=== PATIENT | female | born 1970 | race Caucasian/White ===

== ENCOUNTER 2019-08-30 14:54 | Inpatient (IN) | payer MEDICARE ==
[2019-08-30] MEDS ORDERED: Ipratropium Bromide 2.5 ml Neb NEB PRN (16:32)
[2019-08-30] MEDS ORDERED: traMADol HCl 50 MG TAB PO PRN ×2 (18:11)
[2019-08-30] MEDS: Lactated Ringer's 1,000 ML IV SCH (18:19)
[2019-08-30] MEDS: methylPREDNISolone Sod Succ 40 MG VIAL IVP SCH (18:19)
[2019-08-30] MEDS: Azithromycin 500 MG in Sodium Chloride 0.9% 250 ML 250 ML IVPB SCH (18:19)
--- NOTE | 2019-08-30 18:27 | PDOC.EVN ---
Event Note - Event Note Event Note: [id number] HP
[2019-08-30] MEDS ORDERED: Ipratropium Bromide 2.5 ml Neb NEB SCH (18:30)
[2019-08-30] MEDS ORDERED: HYDROcodone/Acetaminophen 10/325 mg Tablet PO PRN (18:41)
[2019-08-30] MEDS ORDERED: Morphine 2 MG/ML SYRINGE SLOW IVP SCH (18:45)
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
[2019-08-30] MEDS: Famotidine 20 MG TAB PO SCH (21:56)
[2019-08-30] MEDS: Montelukast Sodium 10 mg Tablet PO SCH (21:57)
[2019-08-30] MEDS ORDERED: Morphine 4 MG/ML VIAL SLOW IVP SCH (22:00)
[2019-08-30] MEDS: HYDROcodone/Acetaminophen 10/325 mg Tablet PO PRN (22:05)
--- NOTE | 2019-08-30 22:22 | HP ---
CHIEF COMPLAINT: Shortness of breath. HISTORY OF PRESENT ILLNESS: Ms. Nathan is a 49-year-old female with past medical history of asthma, MRSA sepsis/bacteremia, intubation, traumatic brain injury, presented to the emergency room with shortness of breath, cough, wheezing for the last few days. Symptoms got worse the last 24 hours. The patient initially was in severe respiratory distress, placed on BiPAP and was given IV Solu-Medrol, bronchodilators, and continued to be symptomatic. The patient is being admitted to the [facility] for close monitoring and further management. Pulmonary is being consulted. The patient denies fevers, chills, nausea, vomiting, abdominal pain. PAST MEDICAL HISTORY: 1. MRSA sepsis. 2. Bronchial asthma. 3. Traumatic brain injury. PAST SURGICAL HISTORY: The patient recently had an orthopedic surgery, left knee. SOCIAL HISTORY: Denies smoking, alcohol drinking, or drug abuse. FAMILY HISTORY: Reviewed and noncontributory. HOME MEDICATIONS: Please see home medication reconciliation form for updated medications. ALLERGIES: ALLERGIC TO LORAZEPAM AND MIDAZOLAM. REVIEW OF SYSTEMS: Review of 14 systems negative except what is mentioned in history of present illness. PHYSICAL EXAMINATION: GENERAL: The patient is awake, alert, in moderate respiratory distress. VITAL SIGNS: Blood pressure 147/84, pulse is 79, respiratory rate is 20, oxygen saturation 94% on room air. HEAD AND NECK: Normocephalic, atraumatic. NECK: Supple. CHEST: Diffuse bilateral expiratory wheeze. HEART: S1, S2. Regular. ABDOMEN: Soft, nontender. Bowel sounds present. NEUROLOGIC: Patient is awake, alert, and oriented x3. PSYCHIATRIC: Normal mood. EXTREMITIES: No clubbing, no cyanosis. LABORATORY DATA: WBC is 8.0, hemoglobin 12.1, platelets 257. Chest x-ray, no acute finding. ASSESSMENT AND PLAN: 1. Acute exacerbation of asthma, severe with status asthmaticus. 2. History of traumatic brain injury. 3. History of recent orthopedic surgery/knee surgery. 4. History of methicillin-resistant Staphylococcus aureus sepsis. PLAN: 1. Admit to [facility]. 2. Continue with oxygen to keep saturation more than 92%, BiPAP as needed. 3. IV Solu-Medrol. 4. Bronchodilators scheduled as needed. 5. Pulmonology is consulted for evaluation and further management. 6. Reconcile home medications. 7. DVT prophylaxis as appropriate. 8. Expected length of stay, 2 midnights or more. Job ID: [id number]
[2019-08-31] MEDS: methylPREDNISolone Sod Succ 40 MG VIAL IVP SCH ×5 (00:42→23:51)
[2019-08-31] MEDS ORDERED: Morphine 2 MG/ML SYRINGE SLOW IVP SCH (04:00)
[2019-08-31] MEDS: Lactated Ringer's 1,000 ML IV SCH ×3 (04:04→18:30)
[2019-08-31] MEDS: Famotidine 20 MG TAB PO SCH ×3 (07:55→20:24)
[2019-08-31] MEDS: HYDROcodone/Acetaminophen 10/325 mg Tablet PO PRN ×2 (08:13→14:20)
--- NOTE | 2019-08-31 13:50 | PDOC.EVN ---
Event Note - Event Note Event Note: [id number] Progress
--- NOTE | 2019-08-31 14:06 | PRG ---
DATE OF SERVICE: 08/31/2019 CHIEF COMPLAINT: The patient continues to be short of breath, requiring BiPAP. The patient also has been asking for pain medications consistently. Respiratory syncytial virus A was dissected. PHYSICAL EXAMINATION: GENERAL: The patient is awake, alert, in moderate respiratory distress, on BiPAP. VITAL SIGNS: Blood pressure 158/90, pulse is 116, and respiratory rate is 22, and pulse oximetry 98%. HEAD AND NECK: Normocephalic, atraumatic. NECK: Supple. CHEST: Bilateral expiratory wheeze. HEART: S1 and S2, regular. ABDOMEN: Soft, nontender. Bowel sounds present. NEUROLOGIC: Awake, alert, and oriented. PSYCHIATRIC: Anxious. EXTREMITIES: No clubbing. No cyanosis. Dressing over left knee. GENITOURINARY: No suprapubic tenderness. No flank tenderness. LABORATORY DATA: Nasopharyngeal swab positive for RSV. ASSESSMENT: 1. Acute asthma exacerbation with status asthmaticus. 2. RSV positive. 3. Recent knee surgery. 4. History of methicillin-resistant Staphylococcus aureus sepsis. 5. History of traumatic brain injury. PLAN: 1. Continue with bronchodilator scheduled as needed. 2. IV steroids. 3. IV antibiotics. 4. BiPAP as needed. 5. Pulmonary is following. 6. DVT prophylaxis as appropriate. 7. Continue with close monitoring, IMCU setting. Job ID: [id number]
[2019-08-31 15:38] LABS: CO2 Tension 34.5 mmHg (35.0-45.0); O2 Tension (PaO2) 83.7 mmHg (80.0-100.0); pH, Arterial 7.34 (7.35-7.45)
[2019-08-31 15:39] LABS: Base Excess (BEa) -1.8 mEq/L (-2.0 to +3.0); Calcium, Ionized 1.21 mmol/L (1.12-1.30); Carboxyhemoglobin (COHb) 0.6 gm% (0.0-3.0); Hemoglobin (Hb) 12.6 g/dL (12.0-16.0); Potassium - ABG Lab 4.18 mmol/L (3.70-5.30); Puncture Site LRA
[2019-08-31 15:40] LABS: ALV-art Gradient 72.815 (0-20)
[2019-08-31] MEDS ORDERED: Propofol 1,000 MG/100 ML VIAL IV ONE (16:42)
[2019-08-31] MEDS ORDERED: Midazolam HCl 2 mg/2 ml Vial ONE (16:44)
[2019-08-31] MEDS ORDERED: Ventilator Sedation Protocol 1 EACH FS SCH (16:45)
[2019-08-31] MEDS ORDERED: Propofol BOLUS 1,000 MG/100 ML VIAL IV PRN (16:52)
[2019-08-31] MEDS ORDERED: DISCONTINUE PREVIOUS NARCOTIC PAIN MEDICATIONS AND BENZODIAZEPINES FS SCH (16:52)
[2019-08-31] MEDS ORDERED: Fentanyl BOLUS 250 ML IVPB PRN (16:52)
--- NOTE | 2019-08-31 16:52 | PRG ---
DATE OF SERVICE: 08/31/2019 INTERVAL HISTORY: The patient is doing poorly since she has been in the hospital. She indicates that her breathing function has deteriorated. This morning, she was hoping that she could be intubated. We watched her through the course of the day, she could not tolerate any BiPAP breaks. She continues to be tachypneic. She indicates that her breathing is much more comfortable. All vital signs and laboratories are otherwise fairly unremarkable however. PHYSICAL EXAMINATION: VITAL SIGNS: Afebrile, pulse 68, blood pressure 144/87, respirations 24, saturation 94%, currently on 27% FiO2 delivered via BiPAP. GENERAL: The patient is awake and alert. She is in moderate respiratory distress. HEENT: Normocephalic and atraumatic. Sclerae white. Conjunctivae pink. Oral mucosa is moist without lesions. LUNGS: There is decreased air entry. There is a prolonged expiratory phase and I heard some wheezing. HEART: Normal rate and regular. ABDOMEN: Soft, nontender, nondistended. Bowel sounds are positive. MUSCULOSKELETAL: No cyanosis or clubbing. There is no pitting in the bilateral lower extremities. NEUROLOGIC: Grossly nonfocal. LABORATORY DATA: PH 7.34, pCO2 of 34, PO2 of 83. Respiratory virus panel is positive for respiratory syncytial virus A. ASSESSMENT: 1. Acute hypoxic respiratory failure. 2. Asthma exacerbation secondary to respiratory syncytial virus. DISCUSSION AND PLAN: I sense that the patient is embellishing some of her respiratory symptoms. That being said, she tells me that she is feeling worse and not better and is requesting to be intubated. As such, we will move forward with this procedure to prevent her from having a sudden respiratory event in the middle of the night when no resources are here. Dr. Matos will assume care in the morning. I will be particularly interested in seeing what her ventilator waveform looks like immediately post intubation. Critical care time: 30 minutes, unbundled from procedure. Job ID: [id number] MTDD
--- NOTE | 2019-08-31 17:29 | RAD ---
EXAM: Portable chest PROVIDED CLINICAL HISTORY: Intubation, respiratory insufficiency COMPARISON: None FINDINGS: Cardiac and mediastinal silhouette is within normal limits. No focal consolidation, pleural fluid or pneumothorax evident. Endotracheal tube is noted, the tip of which projects in the region of the thoracic inlet. IMPRESSION: No evidence for an acute cardiopulmonary process.
[2019-08-31] MEDS: Azithromycin 500 MG in Sodium Chloride 0.9% 250 ML 250 ML IVPB SCH (17:31)
[2019-08-31 17:45] LABS: Actual Bicarbonate (HCO3a) 22.6 mEq/L (22-28); Base Excess (BEa) -1.8 mEq/L (-2.0 to +3.0); CO2 Tension 36.9 mmHg (35.0-45.0); Calcium, Ionized 1.16 mmol/L (1.12-1.30); Carboxyhemoglobin (COHb) 0.7 gm% (0.0-3.0); Hemoglobin (Hb) 12.7 g/dL (12.0-16.0); O2 Tension (PaO2) 64.2 mmHg (80.0-100.0); Potassium - ABG Lab 4.28 mmol/L (3.70-5.30)
[2019-08-31 17:46] LABS: ALV-art Gradient 110.705 (0-20); Puncture Site LRA
[2019-08-31] MEDS: Propofol 1,000 MG/100 ML VIAL IV PRN ×2 (17:48→22:08)
[2019-08-31] MEDS: Morphine 2 MG/ML SYRINGE SLOW IVP PRN (19:26)
[2019-08-31] MEDS: Montelukast Sodium 10 mg Tablet PO SCH (20:24)
[2019-09-01] MEDS: Morphine 2 MG/ML SYRINGE SLOW IVP PRN (00:29)
[2019-09-01] MEDS: fentaNYL Citrate/PF 2,000 MCG in Sodium Chloride 0.9% 60 ML IV SCH ×3 (00:53→23:05)
[2019-09-01] MEDS: Propofol 1,000 MG/100 ML VIAL IV PRN ×8 (00:59→23:37)
--- NOTE | 2019-09-01 02:14 | OP ---
DATE OF PROCEDURE: 08/31/2019 PROCEDURE PERFORMED: Emergent endotracheal intubation. CONSENT: Consent was implied secondary to clinical deterioration and respiratory failure. MEDICATIONS USED: 1. Etomidate 40 mg IV push. 2. Versed 2 mg IV push. 3. Propofol 50 mg IV push. PREPROCEDURE DIAGNOSES: 1. Acute hypoxic respiratory failure. 2. Status asthmaticus. POSTPROCEDURE DIAGNOSES: 1. Acute hypoxic respiratory failure. 2. Acute asthma exacerbation. DESCRIPTION OF PROCEDURE: Vital sign monitoring was accomplished by noninvasive hemodynamic monitoring, pulse oximetry, and telemetry. With the patient in supine position, she was preoxygenated with BiPAP and maintained with saturations of 100%. Following induction of anesthesia, a GlideScope was inserted through the mouth offering clear identification of the posterior oropharynx and laryngeal structures with a grade 1 view. A 7.5-Lao endotracheal tube was visualized passing through the vocal cords. Placement was confirmed by condensation in the endotracheal tube and bi-axillary chest auscultation. The endotracheal tube was secured at 24 cm, measured at the lips. The patient was placed on mechanical ventilation with good return of volumes. Postprocedure x-ray demonstrated good location for the endotracheal tube within the trachea. ESTIMATED BLOOD LOSS: None. COMPLICATIONS: None. FINDINGS: After intubating the patient, the waveforms on the ventilator had a minimal obstructive component to the expiratory limb. She was able to comfortably maintain a minute volume of 18 L/minute without significant support. Of note, there was some degree of obstructive airflow limitation however. Job ID: [id number] MTDD
[2019-09-01] MEDS: Lactated Ringer's 1,000 ML IV SCH ×3 (03:54→19:11)
[2019-09-01 04:17] LABS: Anion Gap 13 mmol/L (10-20); BUN (Urea Nitrogen) 21 mg/dL (9.8-20.1); Calc. Creatinine Clearance 127 mL/min (70-130); Calcium 8.9 mg/dL (7.8-10.44); Carbon Dioxide 23 mmol/L (22-29); Chloride 106 mmol/L (98-107); Estimated GFR-MDRD 81; Glucose 137 mg/dL (70-105); Potassium 4.1 mmol/L (3.5-5.1); Sodium 138 mmol/L (136-145)
[2019-09-01 04:24] LABS: Band 1 % (5-11); Hemoglobin 11.8 g/dL (12.0-16.0); Lymphocytes 7 % (21-51); MDiff Complete? YES; Mean Corpuscular HGB CONC 32.2 g/dL (32.0-36.0); Mean Corpuscular Hemoglobin 28.9 pg (27.0-31.0); Mean Corpuscular Volume 89.7 fL (78.0-98.0); Mean Platelet Volume 8.2 fL (7.4-10.4); Monocytes 2 % (0-10); Neutrophil 90 % (42-75); Platelet Count 258 thou/uL (130-400); Platelet Morphology Comment Appears Adequate; RBC Distribution Width 13.3 % (11.5-14.5); RBC Morphology Normal; Red Blood Cell (RBC) Count 4.07 mill/uL (4.20-5.40); White Blood Cell (WBC) Count 10.7 thou/uL (4.8-10.8)
[2019-09-01] MEDS: methylPREDNISolone Sod Succ 40 MG VIAL IVP SCH ×4 (05:18→23:38)
[2019-09-01 07:45] LABS: Actual Bicarbonate (HCO3a) 23.1 mEq/L (22-28); Base Excess (BEa) -1.6 mEq/L (-2.0 to +3.0); CO2 Tension 38.9 mmHg (35.0-45.0); Carboxyhemoglobin (COHb) 0.8 gm% (0.0-3.0); Hemoglobin (Hb) 12.1 g/dL (12.0-16.0); O2 Tension (PaO2) 87.6 mmHg (80.0-100.0); Potassium - ABG Lab 4.11 mmol/L (3.70-5.30); pH, Arterial 7.39 (7.35-7.45)
[2019-09-01 07:47] LABS: Puncture Site LRA
[2019-09-01 07:48] LABS: ALV-art Gradient 84.805 (0-20)
--- NOTE | 2019-09-01 07:58 | RAD ---
Chest AP view INDICATION: Daily cc examination on ventilator COMPARISON: August 31, 2019 FINDINGS: Lungs:The lungs are clear Cardiac silhouette:Mild cardiomegaly is stable Pulmonary vasculature:Normal Pleural spaces:No pleural effusion or pneumothorax is demonstrated. Upper abdomen:No abnormality seen. Osseous structures: No acute osseous abnormality. Additional findings:ET tube is unchanged in position IMPRESSION: Stable mild cardiomegaly. ET tube tip is unchanged in position. No pneumothorax.
[2019-09-01] MEDS: Lorazepam 2 MG/ML VIAL SLOW IVP PRN ×4 (08:25→15:40)
[2019-09-01] MEDS: Famotidine 20 MG TAB PO SCH (08:25)
--- NOTE | 2019-09-01 10:51 | PRG ---
DATE OF SERVICE: 09/01/2019 SUBJECTIVE: The patient remains in the ICU on mechanical ventilation. She was intubated yesterday, was not found to have elevated peak pressures or plateau pressures making the diagnosis of vocal cord dysfunction very suspicious. Of note, she did test positive for RSV type A. She is currently intubated and sedated. PHYSICAL EXAMINATION: VITAL SIGNS: Temperature is 97.7, pulse 57, blood pressure 137/91, O2 saturation 95%. Total intake for 24 hours 2776, output 1835. HEENT: Clear. NECK: No adenopathy or JVD. LUNGS: Clear to auscultation. CARDIAC: S1 and S2, regular. ABDOMEN: Soft. EXTREMITIES: No edema. LABORATORY DATA: ABG; pH 7.39, pCO2 of 38, pO2 of 87 on assist-control, rate 12, PEEP 10, FiO2 31%. White blood cell count 10.7, hematocrit 36.5, and platelet count 258. Sodium 138, potassium 4.1, chloride 106, CO2 of 23, BUN 21, creatinine 0.7, glucose 137. Chest x-ray shows no mass, effusion, or infiltrate. ASSESSMENT: 1. Respiratory syncytial virus bronchiolitis. 2. Probable vocal cord dysfunction. 3. Questionable history of asthma. PLAN: The patient will be kept intubated one more day with hopes of extubating her tomorrow if she does well. She is currently receiving IV steroids, nebulization treatments, empiric antibiotics, and deep sedation. Continue above interventions with goal of extubation tomorrow. Job ID: [id number]
--- NOTE | 2019-09-01 13:01 | PDOC.EVN ---
Event Note - Event Note Event Note: [id number] progress
--- NOTE | 2019-09-01 13:30 | PRG ---
DATE OF SERVICE: 09/01/2019 SUBJECTIVE: The patient continues to be intubated, mechanically ventilated, sedated. Peak pressure on the machine and plateau normal. Making a diagnosis of asthma likely. Suspicion for vocal cord dysfunction as per Pulmonary. The patient tested positive for RSV A. PHYSICAL EXAMINATION: GENERAL: The patient is intubated, sedated, and mechanically ventilated. VITAL SIGNS: Blood pressure 130/86, pulse is 67, and temperature 97.7. HEAD AND NECK: Normocephalic and atraumatic. NECK: Supple. CHEST: Fair bilateral air entry. HEART: S1 and S2. Regular. ABDOMEN: Soft and nontender. Bowel sounds present. NEUROLOGIC: The patient is intubated and sedated. PSYCHIATRIC: Unable to assess. EXTREMITIES: No clubbing or cyanosis. LABORATORY DATA: WBC 10.7, hemoglobin 11.8, platelet 258. Sodium 138, potassium 4.1, BUN is 21, creatinine 0.7, glucose 137. ABG; pH 7.39, pCO2 of 38, and pO2 is 87. ASSESSMENT AND PLAN: 1. Asthma exacerbation with status asthmaticus. 2. RSV positive. 3. Recent knee surgery. 4. History of methicillin-resistant Staphylococcus aureus sepsis. 5. History of traumatic brain injury. PLAN: 1. Continue with bronchodilator scheduled as needed. 2. IV steroids. 3. IV antibiotics. 4. Continue full ventilator support as per Pulmonary. Plan for weaning extubation tomorrow as per Pulmonary. 5. DVT prophylaxis as appropriate. 6. GI prophylaxis. Job ID: [id number]
[2019-09-01] MEDS: Azithromycin 500 MG in Sodium Chloride 0.9% 250 ML 250 ML IVPB SCH (17:32)
[2019-09-01] MEDS: Famotidine/PF 20 mg/2ml Vial SLOW IVP SCH (21:27)
[2019-09-01] MEDS: Montelukast Sodium 10 mg Tablet PO SCH (21:27)
[2019-09-02] MEDS: Propofol 1,000 MG/100 ML VIAL IV PRN ×2 (02:33→05:41)
[2019-09-02] MEDS: Lorazepam 2 MG/ML VIAL SLOW IVP PRN (03:02)
[2019-09-02 04:51] LABS: Anion Gap 13 mmol/L (10-20); BUN (Urea Nitrogen) 18 mg/dL (9.8-20.1); Calc. Creatinine Clearance 132 mL/min (70-130); Calcium 8.6 mg/dL (7.8-10.44); Carbon Dioxide 24 mmol/L (22-29); Chloride 105 mmol/L (98-107); Estimated GFR-MDRD 80; Glucose 131 mg/dL (70-105); Sodium 138 mmol/L (136-145)
[2019-09-02] MEDS: methylPREDNISolone Sod Succ 40 MG VIAL IVP SCH ×4 (05:41→21:41)
[2019-09-02 05:43] LABS: Band 2 % (5-11); Hemoglobin 12.1 g/dL (12.0-16.0); Lymphocytes 6 % (21-51); MDiff Complete? YES; Mean Corpuscular HGB CONC 31.9 g/dL (32.0-36.0); Mean Corpuscular Hemoglobin 28.7 pg (27.0-31.0); Mean Platelet Volume 8.2 fL (7.4-10.4); Monocytes 2 % (0-10); Neutrophil 90 % (42-75); Platelet Count 251 thou/uL (130-400); RBC Distribution Width 13.1 % (11.5-14.5); Red Blood Cell (RBC) Count 4.22 mill/uL (4.20-5.40); White Blood Cell (WBC) Count 11.5 thou/uL (4.8-10.8)
[2019-09-02 07:38] LABS: Actual Bicarbonate (HCO3a) 25.9 mEq/L (22-28); Base Excess (BEa) 0.9 mEq/L (-2.0 to +3.0); CO2 Tension 42.8 mmHg (35.0-45.0); Calcium, Ionized 1.17 mmol/L (1.12-1.30); Carboxyhemoglobin (COHb) 0.9 gm% (0.0-3.0); Hemoglobin (Hb) 12.5 g/dL (12.0-16.0); O2 Tension (PaO2) 81.6 mmHg (80.0-100.0)
[2019-09-02 07:45] LABS: Puncture Site LRA
[2019-09-02] MEDS ORDERED: DC Sedation Protocol FS ONE (08:32)
[2019-09-02] MEDS ORDERED: methylPREDNISolone Sod Succ 40 MG VIAL IVP SCH (08:33)
--- NOTE | 2019-09-02 08:50 | PRG ---
DATE OF SERVICE: 09/02/2019 SUBJECTIVE: The patient is awake on mechanical ventilation. Had no problems overnight. OBJECTIVE: VITAL SIGNS: Temperature 96.7, pulse 62, blood pressure 145/90, O2 saturation 93%. 24-hour intake 2950, output 2800. HEENT: Unremarkable. NECK: No adenopathy or JVD. CHEST: Clear without wheezing or rhonchi. CARDIAC: S1 and S2. Regular. ABDOMEN: Soft. EXTREMITIES: No edema. LABORATORY DATA: PH 7.40, pCO2 of 42, and pO2 of 81, SIMV rate 12, tidal volume 500, PEEP 5, pressure support 10, FiO2 of 31%. White count 11.5, hematocrit 37.9, and platelet count 251. Sodium 138, potassium 4, BUN 18, creatinine 0.7, glucose 131. ASSESSMENT: 1. Likely vocal cord dysfunction. 2. Question of concurrent asthma. 3. Status post endotracheal intubation. 4. Suspect deep psychiatric issues. PLAN: I will go ahead and extubate her and observe. I will decrease the steroid dose. We will start her on diet. Job ID: [id number]
[2019-09-02] MEDS: Famotidine/PF 20 mg/2ml Vial SLOW IVP SCH ×2 (08:56→19:50)
[2019-09-02] MEDS ORDERED: Bacteriostatic Water 30 ML VIAL FS PRN (09:28)
[2019-09-02] MEDS: Acetaminophen 325 MG TAB PO PRN ×2 (10:12→17:35)
[2019-09-02] MEDS: HYDROcodone/Acetaminophen 10/325 mg Tablet PO PRN ×3 (11:30→22:35)
[2019-09-02] MEDS: Lactated Ringer's 1,000 ML IV SCH (11:59)
[2019-09-02 12:17] VITALS: BMI 31.9
--- NOTE | 2019-09-02 12:29 | PDOC.EVN ---
Event Note - Event Note Event Note: [id number] progress
--- NOTE | 2019-09-02 12:46 | PRG ---
DATE OF SERVICE: 09/02/2019 SUBJECTIVE: The patient was just extubated an hour ago. The patient is currently on nasal cannula. The patient appears anxious. PHYSICAL EXAMINATION: VITAL SIGNS: Blood pressure is 145/90, pulse is 74, respiratory rate is 16. The patient is afebrile. HEAD: Normocephalic, atraumatic. NECK: Supple. CHEST: Clear to auscultation and percussion. HEART: S1, S2. Regular. ABDOMEN: Soft, nontender. Bowel sounds present. NEUROLOGIC: Awake, alert, oriented. PSYCH: Anxious. EXTREMITIES: No clubbing or cyanosis. LABORATORY DATA: WBCs 11.5, hemoglobin 12.1, platelets 251. Sodium 139, potassium 4.0, BUN is 18, creatinine 0.76. ASSESSMENT: 1. Acute respiratory failure, status post extubation. 2. Vocal cord dysfunction ? suspected. 3. Asthma exacerbation ?.. 4. RSV positive. 5. Anxiety. 6. Recent knee surgery. PLAN: 1. The patient was just extubated. 2. Steroids being tapered. 3. Continue with bronchodilators. 4. The patient may need psych evaluation regarding anxiety. 5. Continue with current medications. 6. DVT and GI prophylaxis. Job ID: [id number]
[2019-09-02] MEDS ORDERED: Morphine 2 MG/ML SYRINGE SLOW IVP SCH (14:45)
[2019-09-02] MEDS ORDERED: Ondansetron PF 4 MG/2 ML Vial SLOW IVP PRN (17:25)
[2019-09-02] MEDS: Azithromycin 500 MG in Sodium Chloride 0.9% 250 ML 250 ML IVPB SCH (18:36)
[2019-09-02] MEDS: Albuterol Sulfate 2.5 mg/3 ml Neb NEB PRN (19:45)
[2019-09-02] MEDS: Montelukast Sodium 10 mg Tablet PO SCH (19:50)
[2019-09-02] MEDS ORDERED: Lorazepam 0.5 MG TAB PO SCH (21:30)
[2019-09-02] MEDS ORDERED: HYDROcodone/Acetaminophen 10/325 mg Tablet PO SCH (23:30)
[2019-09-03] MEDS: Lactated Ringer's 1,000 ML IV SCH (04:20)
[2019-09-03] MEDS: methylPREDNISolone Sod Succ 40 MG VIAL IVP SCH ×2 (04:21→09:00)
[2019-09-03] MEDS: HYDROcodone/Acetaminophen 10/325 mg Tablet PO PRN ×4 (04:27→20:59)
[2019-09-03 05:17] LABS: Anion Gap 9 mmol/L (10-20); BUN (Urea Nitrogen) 19 mg/dL (9.8-20.1); Calc. Creatinine Clearance 139 mL/min (70-130); Calcium 8.2 mg/dL (7.8-10.44); Carbon Dioxide 28 mmol/L (22-29); Chloride 103 mmol/L (98-107); Estimated GFR-MDRD 85; Glucose 137 mg/dL (70-105); Sodium 136 mmol/L (136-145)
[2019-09-03] MEDS: Albuterol Sulfate 2.5 mg/3 ml Neb NEB PRN ×2 (08:26→12:12)
[2019-09-03] MEDS: Famotidine/PF 20 mg/2ml Vial SLOW IVP SCH ×2 (09:00→20:59)
[2019-09-03] MEDS: Acetaminophen 325 MG TAB PO PRN ×2 (10:31→23:48)
[2019-09-03] MEDS ORDERED: OLANZapine 5 MG TAB PO PRN (14:35)
--- NOTE | 2019-09-03 15:35 | PRG ---
DATE OF SERVICE: 09/03/2019 SERVICE: Pulmonary Medicine. INTERVAL HISTORY: The patient is doing really well from respiratory standpoint. There were no complications overnight. She did not have any fevers or chills. Otherwise, there are no interval events. PHYSICAL EXAMINATION: VITAL SIGNS: Afebrile, pulse 69, blood pressure 167/96, respirations 15, saturation 94%, currently on room air. GENERAL: The patient is awake and alert, in no apparent distress. LUNGS: Decent air entry. No prolonged expiratory phase or wheezing is appreciated. HEART: Normal rate, regular. ABDOMEN: Soft, nontender, nondistended. Bowel sounds are positive. MUSCULOSKELETAL: No cyanosis or clubbing. No pitting in the bilateral lower extremities. NEUROLOGIC: Grossly nonfocal. LABORATORY DATA: Basic metabolic profile is completely unremarkable. Respiratory virus panel is positive for respiratory syncytial virus. ASSESSMENT: 1. Acute hypoxic respiratory failure, resolved. 2. Asthma exacerbation secondary to respiratory syncytial virus. 3. Vocal cord dysfunction. DISCUSSION AND PLAN: We will continue supportive care including antibiotics, nebulized medications, and steroids. From my perspective, if the patient is doing well into tomorrow, she can be considered for transition out of the hospital. She will need to go out on a two week tapering course of prednisone. Antibiotics can be limited to 5 days. Job ID: [id number]
[2019-09-03] MEDS: Azithromycin 500 MG in Sodium Chloride 0.9% 250 ML 250 ML IVPB SCH (17:49)
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
[2019-09-03] MEDS: Montelukast Sodium 10 mg Tablet PO SCH (21:00)
[2019-09-03] MEDS: cloNIDine 0.1 MG TAB PO SCH (21:00)
[2019-09-04] MEDS: HYDROcodone/Acetaminophen 10/325 mg Tablet PO PRN ×3 (03:14→17:45)
[2019-09-04] MEDS: predniSONE 20 MG TAB PO SCH (09:34)
[2019-09-04] MEDS: Famotidine/PF 20 mg/2ml Vial SLOW IVP SCH ×2 (09:34→20:43)
--- NOTE | 2019-09-04 14:10 | PDOC.HOSPP ---
- Subjective Encounter Date: 09/04/19 Encounter Time: 12:30 Subjective: pt up in bed still feels sob. - Objective Vital Signs & Weight: Vital Signs (12 hours) Temp Pulse Resp Pulse Ox 09/04/19 11:11 98.4 F 09/04/19 09:56 71 16 94 L 09/04/19 07:38 99 09/04/19 07:11 99.3 F 09/04/19 06:55 72 18 93 L 09/04/19 05:14 98.3 F 09/04/19 02:19 70 18 95 Weight Admit Weight 210 lb Weight 212 lb 3.2 oz Most Recent Monitor Data Heart Rate from ECG 85 NIBP 121/75 NIBP BP-Mean 90 Respiration from ECG 18 SpO2 92 I&O: 09/03/19 09/04/19 09/05/19 06:59 06:59 06:59 Intake Total 2540 1230 Output Total 2810 3252 400 Balance -953 -3025 -400 Result Diagrams: 09/02/19 03:50 09/03/19 04:42 Hospitalist ROS - Review of Systems Respiratory: reports: shortness of breath. denies: cough, dry, hemoptysis, SOB with excertion, pleuritic pain, sputum, wheezing, other Cardiovascular: denies: chest pain, palpitations, orthopnea, paroxysmal noc. dyspnea, edema, light headedness, other Gastrointestinal: denies: nausea, vomiting, abdominal pain, diarrhea, constipation, melena, hematochezia, other - Medication Medications: Active Medications Generic Name Dose Route Start Last Admin Trade Name Freq PRN Reason Stop Dose Admin Acetaminophen 650 mg 08/30/19 16:26 09/03/19 23:48 Tylenol PO 650 mg Q4H PRN Administration Headache/Fever/Mild Pain (1-3) Hydrocodone Bitart/Acetaminophen 2 tab 09/03/19 14:27 09/04/19 10:52 [place] 10/325 PO 2 tab Q6H PRN Administration Moderate to Severe Pain (6-10) Albuterol Sulfate 2.5 mg 08/31/19 16:38 09/03/19 12:12 Ventolin NEB 2.5 mg Q2H PRN Administration SOB &/or Wheezing Albuterol/Ipratropium 3 ml 08/31/19 18:30 09/04/19 09:56 Duoneb NEB 3 ml [id number] LISET Administration Clonidine 0.1 mg 09/03/19 21:00 09/03/19 21:00 Catapres PO 0.1 mg HS LISET Administration Famotidine 20 mg 09/01/19 21:00 09/04/19 09:34 Pepcid SLOW IVP 20 mg Q12HR LISET Administration Azithromycin 500 mg/ Sodium 250 mls @ 250 mls/hr 08/30/19 18:00 09/03/19 17: 49 Chloride IVPB 250 mls 1800 LISET Administration Montelukast Sodium 10 mg 08/30/19 21:00 09/03/19 21:00 Singulair PO 10 mg QPM LISET Administration Olanzapine 5 mg 09/03/19 14:35 09/03/19 21:39 Zyprexa PO 5 mg HSPRN PRN Administration Agitation Ondansetron HCl 4 mg 09/02/19 17:25 09/02/19 17:34 Zofran SLOW IVP 4 mg Q6H PRN Administration Nausea/Vomiting Prednisone 40 mg 09/04/19 08:00 09/04/19 09:34 Prednisone PO 40 mg QAM-WM LISET Administration - Exam ENT: negative: normocephalic atraumatic, no oropharyngeal lesions, moist mucosa , dry oral mucosa Neck: negative: supple, symmetric, no JVD, no thyromegaly, no lymphadenopathy, no carotid bruit, JVD Heart: negative: RRR, no murmur, no gallops, no rubs, normal peripheral pulses, irregular, diminshed peripheral pulses, murmur present, II/IV, III/IV Respiratory: rhonchi, wheezes Gastrointestinal: negative: soft, non-tender, non-distended, normal bowel sounds , no palpable masses, no hepatomegaly, no splenomegaly, no bruit, no guarding, no rigidity, tender to palpation, distended, diminished bowl sounds, voluntary guarding Hosp A/P (1) Acute respiratory failure with hypoxia Code(s): J96.01 - ACUTE RESPIRATORY FAILURE WITH HYPOXIA Status: Acute (2) RSV bronchitis Code(s): J20.5 - ACUTE BRONCHITIS DUE TO RESPIRATORY SYNCYTIAL VIRUS Status: Acute (3) COPD exacerbation Code(s): J44.1 - CHRONIC OBSTRUCTIVE PULMONARY DISEASE W (ACUTE) EXACERBATION Status: Acute - Plan will continue po steroids and iv abx. pt states she feels a bit well today but still feels sob. will monitor her for one more day.
--- NOTE | 2019-09-04 17:02 | PRG ---
DATE OF SERVICE: 09/04/2019 SERVICE: Pulmonary Medicine. INTERVAL HISTORY: The patient is doing really well from respiratory standpoint. Denies any current chest discomfort. She is coughing, getting up some phlegm. Otherwise, there has been no interval change to her condition. She feels safe to go home at this point. PHYSICAL EXAMINATION: VITAL SIGNS: Afebrile, pulse 83, blood pressure 130/81, respirations 18, saturation 92%, currently on room air. GENERAL: The patient is awake and alert, in no apparent distress. LUNGS: Wonderful air entry. There is not much of prolonged expiratory phase, though extensive rhonchi are in fact present. No crackles or wheezing appreciated. HEART: Normal rate, regular. ABDOMEN: Soft, nontender, nondistended. Bowel sounds are positive. MUSCULOSKELETAL: No cyanosis or clubbing. No pitting in the bilateral lower extremities. NEUROLOGIC: Grossly nonfocal. ASSESSMENT: 1. Acute hypoxic respiratory failure, resolved. 2. Asthma exacerbation secondary to respiratory syncytial virus. 3. Vocal cord dysfunction. DISCUSSION AND PLAN: The patient is doing fine from respiratory standpoint. At this point, she is stable for transition out of the hospital. Antibiotic should be limited to 5 days. Steroids can be tapered over a period of 2 weeks. From a purely respiratory perspective, she is more than stable for transition home today or tomorrow provided she has no significant setbacks. Job ID: [id number]
[2019-09-04] MEDS: Azithromycin 500 MG in Sodium Chloride 0.9% 250 ML 250 ML IVPB SCH (17:45)
[2019-09-04] MEDS: cloNIDine 0.1 MG TAB PO SCH (20:43)
[2019-09-04] MEDS: Montelukast Sodium 10 mg Tablet PO SCH (20:43)
[2019-09-04 20:44] VITALS: BP 146/89
[2019-09-05] MEDS: HYDROcodone/Acetaminophen 10/325 mg Tablet PO PRN ×2 (01:01→08:36)
[2019-09-05] MEDS: Albuterol Sulfate 2.5 mg/3 ml Neb NEB PRN (03:20)
--- NOTE | 2019-09-05 08:26 | PRG ---
DATE OF SERVICE: 09/05/2019 SUBJECTIVE: The patient is doing better. She wants to go home. OBJECTIVE: VITAL SIGNS: Temperature 97.8, pulse 68, respirations 19, O2 saturation 94%. HEENT: Unremarkable. NECK: No adenopathy or JVD. LUNGS: She has upper respiratory noises radiating to her airways with no peripheral wheezing. CARDIAC: S1, S2. Regular. ABDOMEN: Soft. EXTREMITIES: No edema. ASSESSMENT: 1. Likely vocal cord dysfunction. 2. Rhinovirus. RECOMMENDATIONS: I will go ahead and stop her antibiotics as she has run a full course of that. My advice would be to taper her prednisone over a couple of weeks. She seems stable for clinical discharge. She needs to follow up with her previous correctional program specialist as I will not be accepting her care in the office. Job ID: [id number]
[2019-09-05] MEDS: predniSONE 20 MG TAB PO SCH (08:36)
[2019-09-05] MEDS: Famotidine/PF 20 mg/2ml Vial SLOW IVP SCH (08:36)
[2019-09-05 11:19] VITALS: TEMP 97.9
--- NOTE | 2019-09-06 03:44 | DIS ---
DATE OF ADMISSION: 08/30/2019 DATE OF DISCHARGE: 09/05/2019 DISCHARGE DIAGNOSES: As of the followin. Acute respiratory failure with hypoxia. 2. Respiratory syncytial virus bronchitis. 3. Chronic obstructive pulmonary disease exacerbation. 4. Obesity. HOSPITAL COURSE: The patient is a 49-year-old female who initially presented to the hospital on 08/30 with shortness of breath. The patient at this time was put on BiPAP for severe respiratory distress and was given steroids and bronchodilators and was admitted into the IMCU. The patient was positive for RSV virus. The patient on 08/31 required intubation due to worsening respiratory failure. She was then extubated on 09/02; however there was a concern for possible vocal cord dysfunction. The patient continued to improve through the hospital stay. She was then discharged home. DISCHARGE HOME MEDICATIONS: 1. Two week steroid taper, which I have given her prescription. 2. DuoNeb q.4 hours p.r.n. neb treatments. 3. Advair 1 inhalation b.i.d. 4. Singulair 10 mg q.p.m. 5. Prednisone taper as I mentioned, and her pain medications. She was asked to take her prednisone with food. 6. She was also put on Pepcid. PHYSICAL EXAMINATION: VITAL SIGNS: Temperature of 97.9, 71, 16, 95% on room air. Her blood pressure was 135/72. GENERAL: She is awake, alert, and oriented x3. Does not appear in any distress. CV: S1, S2 present. LUNGS: She still has some mild rhonchi, however, improved from prior. ABDOMEN: Soft and nontender. Bowel sounds are present x2. FOLLOWUP: I have asked her to follow up with her primary care doctor and also her regulatory affairs manager. Job ID: [id number]
== END 2019-09-05 12:33 | disposition home or self-care (01) | DRG 208 ==
LOC: IMCU/EMU 14:54 → CCU 08-31 16:42 → IMCU/EMU 09-02 15:46
PROVIDERS: ADMIT Internal Medicine; ATTEND Internal Medicine
PROC: 5A1945Z Respiratory Ventilation, 24-96 Consecutive Hours (ICD-10-PCS; principal; 2019-08-31)
PROC: 0BH17EZ Insertion of Endotracheal Airway into Trachea, Via Natural or Artificial Opening (ICD-10-PCS; 2019-08-31)
DX: J45.52 Severe persistent asthma with status asthmaticus (principal); J96.01 Acute respiratory failure with hypoxia; J44.1 Chronic obstructive pulmonary disease with (acute) exacerbation; J44.0 Chronic obstructive pulmonary disease with (acute) lower respiratory infection; J21.0 Acute bronchiolitis due to respiratory syncytial virus; J45.51 Severe persistent asthma with (acute) exacerbation; Z87.820 Personal history of traumatic brain injury; Z98.890 Other specified postprocedural states; Z88.8 Allergy status to other drugs, medicaments and biological substances; B97.4 Respiratory syncytial virus as the cause of diseases classified elsewhere; F41.9 Anxiety disorder, unspecified; J20.5 Acute bronchitis due to respiratory syncytial virus; J20.6 Acute bronchitis due to rhinovirus
CPT/HCPCS: 36415; 71045; 80048; 82805; 84443; 85007; 85027; 87633; 87798; 94002; 94003; 94640; 94660; J0456; J2060; J2250; J2270; J2405; J2704; J2920; J3010; J3490; J7050; J7512; J7611; J7620; S0028

== ENCOUNTER 2022-12-06 23:52 | Emergency (ER) | payer MEDICARE ==
[2022-12-07 01:19] LABS: #Eosinphils 0.3 thou/uL (0.0-0.7); #Lymphocytes 2.3 thou/uL (1.20-3.40); #Monocytes 0.4 thou/uL (0.11-0.59); #Neutrophils 3.5 thou/uL (1.40-6.50); %Basophils 0.3 % (0.0-1.0); %Eosinophils 3.9 % (0.0-10.0); %Lymphocytes 35.7 % (21.0-51.0); %Monocytes 6.1 % (0.0-10.0); Hemoglobin 12.8 g/dL (12.0-16.0); Mean Corpuscular HGB CONC 34.3 g/dL (32.0-36.0); Mean Corpuscular Volume 93.5 fl (78.0-98.0); Mean Platelet Volume 8.8 fL (7.4-10.4); Platelet Count 185 10x3/uL (130-400); White Blood Cell (WBC) Count 6.6 10x3/uL (4.8-10.8)
[2022-12-07 01:40] LABS: ALT (SGPT) 27 U/L (8-55); AST (SGOT) 21 U/L (5-34); Albumin 4.4 g/dL (3.5-5.0); Alkaline Phosphatase 97 U/L (40-110); Anion Gap 14 mmol/L (10-20); BUN (Urea Nitrogen) 18 mg/dL (9.8-20.1); Bilirubin, Total 0.7 mg/dL (0.2-1.2); Calc. Creatinine Clearance 0 mL/min (70-130); Calcium 9.4 mg/dL (7.8-10.44); Carbon Dioxide 25 mmol/L (22-29); Chloride 107 mmol/L (98-107); Estimated GFR 63; Globulin 2.9 g/dL (2.4-3.5); Glucose 150 mg/dL (70-105); Protein, Total 7.3 g/dL (6.0-8.3); Sodium 142 mmol/L (136-145)
[2022-12-07] MEDS ORDERED: Ketorolac Tromethamine 30 MG/ML VIAL ONE (01:56)
[2022-12-07 04:13] LABS: Lactic Acid 1.5 mmol/L (0.5-2.2)
[2022-12-07] MEDS ORDERED: Iopamidol-370 76% 500 ML MDV (1 ML CHARGE) ONE (13:58)
== END 2022-12-07 04:42 | disposition home or self-care (01) ==
LOC: ERS 23:52
DX: M79.604 Pain in right leg (principal)
CPT/HCPCS: 36415; 80053; 83605; 85025; 85652; 86140; 87040; 96374; J1885; Q9967

== ENCOUNTER 2023-06-04 11:21 | Emergency (ER) | payer MEDICARE ==
[2023-06-04] MEDS ORDERED: Morphine 4 MG/ML VIAL ONE (12:19)
[2023-06-04] MEDS ORDERED: Ondansetron PF 4 MG/2 ML Vial ONE (12:19)
[2023-06-04 12:51] LABS: #Eosinphils 0.2 thou/uL (0.0-0.7); #Monocytes 0.3 thou/uL (0.11-0.59); #Neutrophils 4.4 thou/uL (1.40-6.50); %Basophils 0.5 % (0.0-1.0); %Eosinophils 2.9 % (0.0-10.0); %Lymphocytes 20.4 % (21.0-51.0); %Monocytes 5.5 % (0.0-10.0); %Neutrophils 70.4 % (42.0-75.0); Hematocrit 39.3 % (36.0-47.0); Hemoglobin 12.8 g/dL (12.0-16.0); Mean Corpuscular HGB CONC 32.6 g/dL (32.0-36.0); Mean Platelet Volume 10.1 fL (7.4-10.4); Platelet Count 240 10x3/uL (130-400); RBC Distribution Width 13.5 % (11.5-14.5); Red Blood Cell (RBC) Count 4.27 mill/uL (4.20-5.40); White Blood Cell (WBC) Count 6.2 10x3/uL (4.8-10.8)
[2023-06-04 13:25] LABS: ALT (SGPT) 32 U/L (8-55); AST (SGOT) 27 U/L (5-34); Albumin 4.3 g/dL (3.5-5.0); Alkaline Phosphatase 87 U/L (40-110); Anion Gap 12 mmol/L (10-20); BUN (Urea Nitrogen) 11 mg/dL (9.8-20.1); Bilirubin, Total 0.7 mg/dL (0.2-1.2); Calc. Creatinine Clearance 0 mL/min (70-130); Calcium 9.5 mg/dL (7.8-10.44); Carbon Dioxide 28 mmol/L (22-29); Chloride 104 mmol/L (98-107); Estimated GFR 69; Globulin 3.1 g/dL (2.4-3.5); Glucose 108 mg/dL (70-105); Lipase 5 U/L (8-78); Potassium 4.3 mmol/L (3.5-5.1); Protein, Total 7.4 g/dL (6.0-8.3); Sodium 140 mmol/L (136-145)
[2023-06-04] MEDS ORDERED: Iopamidol-370 76% 500 ML MDV (1 ML CHARGE) ONE (13:27)
[2023-06-04 13:29] LABS: Troponin I Less than 0.010 ng/mL (< 0.028)
[2023-06-04 13:52] LABS: Bacteria/HPF None Seen HPF (None Seen); Bilirubin Negative (Negative); Blood, Urine Negative (Negative); CAUTI Indications for Culture Dysuria,urgency,freq; Clarity Clear (Clear); Glucose, Urine (Dipstick) Normal (Negative); Ketone, Urine Negative (Negative); Leukocyte 25 Leu/uL (Negative); Nitrite Negative (Negative); Protein, Urine (Dipstick) Negative (Neg-Trace); RBC/HPF 0-3 HPF (0-3); Specific Gravity, Urine 1.024 (1.002-1.036); Squamous Epithelial 0-3 HPF (0-3); Urobilinogen Normal mg/dL (Less than 2); WBC/HPF 0-3 HPF (0-3); pH, Urine 6.5 (5.0-9.0)
[2023-06-04 14:05] LABS: Urine Culture Reflex No No
[2023-06-04] MEDS ORDERED: traMADol HCl 50 MG TAB ONE (14:26)
== END 2023-06-04 17:07 | disposition home or self-care (01) ==
LOC: ERS 11:21
DX: N83.201 Unspecified ovarian cyst, right side (principal); K76.0 Fatty (change of) liver, not elsewhere classified; J45.909 Unspecified asthma, uncomplicated
CPT/HCPCS: 36415; 71045; 74177; 76856; 80053; 81001; 83690; 84484; 85025; 93005; 96361; 96374; 96375; J2270; J2405; Q9967

== ENCOUNTER 2023-06-09 09:39 | Inpatient (IN) | payer MEDICARE ==
[2023-06-09 10:07] VITALS: BMI 36.1
[2023-06-09 10:46] LABS: #Eosinphils 0.2 thou/uL (0.0-0.7); #Monocytes 0.5 thou/uL (0.11-0.59); #Neutrophils 4.4 thou/uL (1.40-6.50); %Basophils 0.6 % (0.0-1.0); %Eosinophils 2.9 % (0.0-10.0); %Lymphocytes 24.1 % (21.0-51.0); %Monocytes 7.7 % (0.0-10.0); %Neutrophils 64.3 % (42.0-75.0); Hematocrit 38.7 % (36.0-47.0); Hemoglobin 12.3 g/dL (12.0-16.0); Mean Corpuscular HGB CONC 31.8 g/dL (32.0-36.0); Mean Corpuscular Hemoglobin 30.1 pg (27.0-31.0); Mean Corpuscular Volume 94.9 fl (78.0-98.0); Mean Platelet Volume 10.1 fL (7.4-10.4); Platelet Count 208 10x3/uL (130-400); RBC Distribution Width 13.6 % (11.5-14.5); Red Blood Cell (RBC) Count 4.08 mill/uL (4.20-5.40); White Blood Cell (WBC) Count 6.8 10x3/uL (4.8-10.8)
[2023-06-09] MEDS ORDERED: Albuterol 200 PUFF (6.7GM INHALER) INH PRN (10:57)
[2023-06-09 11:01] LABS: INR-International Normal Ratio 0.9; PTT 33.9 sec (22.9-36.1); Prothrombin Time 12.8 sec (12.0-14.7)
[2023-06-09 11:17] LABS: ALT (SGPT) 33 U/L (8-55); AST (SGOT) 28 U/L (5-34); Albumin 4.3 g/dL (3.5-5.0); Alkaline Phosphatase 98 U/L (40-110); Anion Gap 12 mmol/L (10-20); BUN (Urea Nitrogen) 15 mg/dL (9.8-20.1); Bilirubin, Total 0.8 mg/dL (0.2-1.2); Calc. Creatinine Clearance 112 mL/min (70-130); Calcium 9.1 mg/dL (7.8-10.44); Carbon Dioxide 28 mmol/L (22-29); Chloride 102 mmol/L (98-107); Estimated GFR 69; Globulin 3.1 g/dL (2.4-3.5); Glucose 108 mg/dL (70-105); Potassium 4.4 mmol/L (3.5-5.1); Protein, Total 7.4 g/dL (6.0-8.3); Sodium 138 mmol/L (136-145)
[2023-06-09] MEDS ORDERED: FLU VACC QS2023-24(6MOS UP)/PF 60 MCG/0.5 ML SYRINGE IM ONE (11:30)
[2023-06-09] MEDS ORDERED: DULoxetine 30 MG CAP PO SCH (11:30)
[2023-06-09] MEDS ORDERED: Iopamidol-370 76% 500 ML MDV (1 ML CHARGE) ONE (12:15)
[2023-06-09 12:38] LABS: Troponin I Less than 0.010 ng/mL (< 0.028)
[2023-06-09] MEDS: HYDROcodone/Acetaminophen 10/325 mg Tablet PO PRN ×2 (12:58→18:56)
[2023-06-09] MEDS: Ketorolac Tromethamine 30 MG/ML VIAL IVP PRN ×2 (13:44→22:59)
[2023-06-09 14:29] LABS: Troponin I Less than 0.010 ng/mL (< 0.028)
[2023-06-09] MEDS: Morphine 2 MG/ML VIAL SLOW IVP PRN ×2 (15:22→21:32)
[2023-06-09] MEDS: DULoxetine 30 MG CAP PO SCH (20:58)
[2023-06-10] MEDS ORDERED: Morphine 2 MG/ML VIAL SLOW IVP SCH ×2 (00:15→11:00)
[2023-06-10] MEDS: HYDROcodone/Acetaminophen 10/325 mg Tablet PO PRN ×3 (01:40→17:42)
[2023-06-10] MEDS: Ketorolac Tromethamine 30 MG/ML VIAL IVP PRN ×3 (05:22→22:52)
[2023-06-10] MEDS: Morphine 2 MG/ML VIAL SLOW IVP PRN ×2 (07:28→20:01)
[2023-06-10] MEDS ORDERED: DULoxetine 30 MG CAP PO SCH (09:00)
[2023-06-10] MEDS ORDERED: DULoxetine 60 MG CAP PO SCH (09:00)
[2023-06-10] MEDS ORDERED: Lidocaine 2% Viscous Solution 10 ML, Aluminum & Magnesium Hydroxide 30 ML SSW SCH (09:15)
[2023-06-10] MEDS: Lidocaine 4% Patch TD SCH (09:18)
[2023-06-10] MEDS: DULoxetine 30 MG CAP PO SCH (20:01)
[2023-06-11] MEDS: HYDROcodone/Acetaminophen 10/325 mg Tablet PO PRN ×5 (01:49→22:34)
[2023-06-11] MEDS: Morphine 2 MG/ML VIAL SLOW IVP PRN ×4 (02:02→19:36)
[2023-06-11] MEDS: Transdermal Patch Removal TOP SCH ×2 (02:06→20:08)
[2023-06-11] MEDS ORDERED: hydrALAZINE 20 MG/ML VIAL SLOW IVP PRN ×2 (06:29→10:16)
[2023-06-11] MEDS: Lidocaine 4% Patch TD SCH (07:47)
[2023-06-11 08:22] LABS: #Eosinphils 0.2 thou/uL (0.0-0.7); #Monocytes 0.5 thou/uL (0.11-0.59); #Neutrophils 7.3 thou/uL (1.40-6.50); %Basophils 0.3 % (0.0-1.0); %Eosinophils 1.7 % (0.0-10.0); %Lymphocytes 13.7 % (21.0-51.0); %Monocytes 5.5 % (0.0-10.0); %Neutrophils 78.5 % (42.0-75.0); Hematocrit 38.4 % (36.0-47.0); Hemoglobin 12.5 g/dL (12.0-16.0); Mean Corpuscular HGB CONC 32.6 g/dL (32.0-36.0); Mean Corpuscular Hemoglobin 30.3 pg (27.0-31.0); Mean Platelet Volume 10.2 fL (7.4-10.4); Platelet Count 200 10x3/uL (130-400); RBC Distribution Width 13.3 % (11.5-14.5); Red Blood Cell (RBC) Count 4.13 mill/uL (4.20-5.40); White Blood Cell (WBC) Count 9.3 10x3/uL (4.8-10.8)
[2023-06-11 09:01] LABS: ALT (SGPT) 30 U/L (8-55); AST (SGOT) 23 U/L (5-34); Albumin 4.4 g/dL (3.5-5.0); Alkaline Phosphatase 81 U/L (40-110); Anion Gap 12 mmol/L (10-20); BUN (Urea Nitrogen) 15 mg/dL (9.8-20.1); Calc. Creatinine Clearance 126 mL/min (70-130); Calcium 8.8 mg/dL (7.8-10.44); Carbon Dioxide 25 mmol/L (22-29); Chloride 106 mmol/L (98-107); Estimated GFR 79; Globulin 2.7 g/dL (2.4-3.5); Glucose 123 mg/dL (70-105); Potassium 4.1 mmol/L (3.5-5.1); Protein, Total 7.1 g/dL (6.0-8.3); Sodium 139 mmol/L (136-145)
[2023-06-11] MEDS ORDERED: Regadenoson 0.4 MG/5 ML SYRINGE ONE (10:55)
[2023-06-11] MEDS: Sodium Chloride 0.9% 1,000 ML IV SCH ×2 (14:46→19:52)
[2023-06-11] MEDS ORDERED: CEFAZOLIN 2 GM in Sodium Chloride 0.9% 100 ML IVPB SCH (15:15)
[2023-06-11] MEDS: Ketorolac Tromethamine 30 MG/ML VIAL IVP SCH ×2 (17:03→22:33)
[2023-06-11] MEDS: DULoxetine 30 MG CAP PO SCH (20:07)
[2023-06-12] MEDS: Morphine 2 MG/ML VIAL SLOW IVP PRN ×3 (03:36→17:01)
[2023-06-12 04:38] LABS: #Eosinphils 0.2 thou/uL (0.0-0.7); #Monocytes 0.5 thou/uL (0.11-0.59); #Neutrophils 5.5 thou/uL (1.40-6.50); %Basophils 0.5 % (0.0-1.0); %Eosinophils 2.2 % (0.0-10.0); %Lymphocytes 20.5 % (21.0-51.0); %Monocytes 6.1 % (0.0-10.0); %Neutrophils 70.3 % (42.0-75.0); Hematocrit 38.2 % (36.0-47.0); Hemoglobin 12.4 g/dL (12.0-16.0); Mean Corpuscular HGB CONC 32.5 g/dL (32.0-36.0); Mean Corpuscular Hemoglobin 30.2 pg (27.0-31.0); Mean Corpuscular Volume 92.9 fl (78.0-98.0); Mean Platelet Volume 10.4 fL (7.4-10.4); Platelet Count 201 10x3/uL (130-400); RBC Distribution Width 13.3 % (11.5-14.5); Red Blood Cell (RBC) Count 4.11 mill/uL (4.20-5.40); White Blood Cell (WBC) Count 7.8 10x3/uL (4.8-10.8)
[2023-06-12 05:03] LABS: ALT (SGPT) 25 U/L (8-55); AST (SGOT) 19 U/L (5-34); Albumin 4.2 g/dL (3.5-5.0); Alkaline Phosphatase 80 U/L (40-110); Anion Gap 12 mmol/L (10-20); BUN (Urea Nitrogen) 13 mg/dL (9.8-20.1); Bilirubin, Total 1.1 mg/dL (0.2-1.2); Calc. Creatinine Clearance 141 mL/min (70-130); Calcium 8.7 mg/dL (7.8-10.44); Carbon Dioxide 23 mmol/L (22-29); Chloride 107 mmol/L (98-107); Estimated GFR 90; Globulin 2.6 g/dL (2.4-3.5); Glucose 103 mg/dL (70-105); Protein, Total 6.8 g/dL (6.0-8.3); Sodium 138 mmol/L (136-145)
[2023-06-12] MEDS: Ketorolac Tromethamine 30 MG/ML VIAL IVP SCH ×2 (05:28→11:42)
[2023-06-12] MEDS: HYDROcodone/Acetaminophen 10/325 mg Tablet PO PRN ×2 (05:29→11:44)
[2023-06-12] MEDS: Sodium Chloride 0.9% 1,000 ML IV SCH ×2 (05:32→15:40)
[2023-06-12] MEDS ORDERED: Sevoflurane 250 ML INH ANEST BOTTLE ONE (05:45)
[2023-06-12] MEDS ORDERED: Lisinopril 10 MG TAB PO SCH (09:00)
[2023-06-12] MEDS: Lidocaine 4% Patch TD SCH (10:01)
[2023-06-12] MEDS ORDERED: Communication Order-Pharmacy FS SCH (12:30)
[2023-06-12] MEDS ORDERED: Lidocaine 1% (PF) 30 ML VIAL ONE (12:52)
[2023-06-12] MEDS ORDERED: hydrALAZINE 20 MG/ML VIAL ONE (14:08)
[2023-06-12] MEDS ORDERED: Nitroglycerin 0.4 MG TAB (25 Tab Bottle) SL PRN (14:15)
[2023-06-12] MEDS ORDERED: Sodium Chloride 0.9% 200 ML IV PRN (14:15)
[2023-06-12] MEDS ORDERED: Acetaminophen/Codeine 30-300mg Tablet PO PRN ×2 (14:15)
[2023-06-12 16:03] VITALS: BP 166/67; TEMP 98.1
[2023-06-12] MEDS ORDERED: diphenhydrAMINE 50 MG CAP PO SCH (17:30)
[2023-06-12] MEDS ORDERED: Indomethacin 25 mg Capsule PO SCH (21:00)
== END 2023-06-12 18:50 | disposition home or self-care (01) | DRG 206 ==
LOC: T4-B 09:39 → 2NO 16:06 → OBSVTOIN 06-11 15:45
PROVIDERS: ADMIT Family Medicine; ATTEND Family Medicine
PROC: 4A023N7 Measurement of Cardiac Sampling and Pressure, Left Heart, Percutaneous Approach (ICD-10-PCS; principal; 2023-06-12)
PROC: B2111ZZ Fluoroscopy of Multiple Coronary Arteries using Low Osmolar Contrast (ICD-10-PCS; 2023-06-12)
PROC: B2151ZZ Fluoroscopy of Left Heart using Low Osmolar Contrast (ICD-10-PCS; 2023-06-12)
DX: M94.0 Chondrocostal junction syndrome [Tietze] (principal); I47.19 Other supraventricular tachycardia; I10 Essential (primary) hypertension; G89.29 Other chronic pain; E66.01 Morbid (severe) obesity due to excess calories; I44.39 Other atrioventricular block; R22.2 Localized swelling, mass and lump, trunk; N83.8 Other noninflammatory disorders of ovary, fallopian tube and broad ligament; Z68.36 Body mass index [BMI] 36.0-36.9, adult; Z98.890 Other specified postprocedural states; Z91.040 Latex allergy status; Z88.8 Allergy status to other drugs, medicaments and biological substances; Z79.899 Other long term (current) drug therapy; Z79.51 Long term (current) use of inhaled steroids
CPT/HCPCS: 36415; 71046; 71275; 78452; 80053; 84443; 84484; 85025; 85610; 85730; 93005; 93010; 93017; 93306; 93458; 96374; 96375; 96376; A9500; C1769; G0378; J0360; J1885; J2001; J2272; J2785; J7050; Q9967

== ENCOUNTER 2023-06-14 00:49 | Emergency (ER) | payer MEDICARE ==
[2023-06-14] MEDS ORDERED: Albuterol 2.5 MG/0.5 ML NEB ONE (01:42)
[2023-06-14] MEDS ORDERED: Ipratropium Bromide 2.5 ml Neb ONE (01:42)
[2023-06-14 01:53] LABS: #Eosinphils 0.3 thou/uL (0.0-0.7); #Monocytes 0.5 thou/uL (0.11-0.59); #Neutrophils 6.2 thou/uL (1.40-6.50); %Basophils 0.5 % (0.0-1.0); %Lymphocytes 18.6 % (21.0-51.0); %Monocytes 6.2 % (0.0-10.0); %Neutrophils 71.4 % (42.0-75.0); Hematocrit 36.6 % (36.0-47.0); Mean Corpuscular HGB CONC 32.8 g/dL (32.0-36.0); Mean Corpuscular Hemoglobin 30.6 pg (27.0-31.0); Mean Corpuscular Volume 93.4 fl (78.0-98.0); Mean Platelet Volume 10.4 fL (7.4-10.4); Platelet Count 203 10x3/uL (130-400); RBC Distribution Width 14.2 % (11.5-14.5); Red Blood Cell (RBC) Count 3.92 mill/uL (4.20-5.40); White Blood Cell (WBC) Count 8.7 10x3/uL (4.8-10.8)
[2023-06-14 02:21] LABS: Troponin I Less than 0.010 ng/mL (< 0.028)
[2023-06-14 02:33] LABS: ALT (SGPT) 26 U/L (8-55); AST (SGOT) 26 U/L (5-34); Albumin 4.5 g/dL (3.5-5.0); Alkaline Phosphatase 91 U/L (40-110); Anion Gap 16 mmol/L (10-20); BUN (Urea Nitrogen) 21 mg/dL (9.8-20.1); Bilirubin, Total 0.5 mg/dL (0.2-1.2); Calc. Creatinine Clearance 0 mL/min (70-130); Calcium 9.2 mg/dL (7.8-10.44); Carbon Dioxide 20 mmol/L (22-29); Chloride 109 mmol/L (98-107); Estimated GFR 54; Globulin 2.8 g/dL (2.4-3.5); Glucose 111 mg/dL (70-105); Potassium 4.7 mmol/L (3.5-5.1); Protein, Total 7.3 g/dL (6.0-8.3); Sodium 140 mmol/L (136-145)
[2023-06-14] MEDS ORDERED: HYDROcodone/Acetaminophen 10/325 mg Tablet ONE (02:57)
[2023-06-14] MEDS ORDERED: methylPREDNISolone Sod Succ/PF 125 MG/2 ML VIAL ONE (03:43)
[2023-06-14] MEDS ORDERED: diphenhydrAMINE 50 MG/ML VIAL ONE (03:43)
[2023-06-14] MEDS ORDERED: Famotidine/PF 20 mg/2ml Vial ONE (03:44)
[2023-06-14] MEDS ORDERED: cefTRIAXone (ROCEPHIN) 1 GM VIAL ONE (06:02)
== END 2023-06-14 06:17 | disposition home or self-care (01) ==
LOC: ERS 00:49
DX: L01.00 Impetigo, unspecified (principal); T78.40XA Allergy, unspecified, initial encounter; I48.91 Unspecified atrial fibrillation; Z79.899 Other long term (current) drug therapy
CPT/HCPCS: 36415; 71045; 80053; 83605; 83880; 84484; 85025; 87040; 93005; 96374; 96375; J0696; J1200; J2930; J7611; S0028

== ENCOUNTER 2023-07-22 18:57 | Inpatient (IN) | payer OTHER, MEDICARE ==
[2023-07-22] MEDS ORDERED: Acetaminophen 650 MG Suppository PR PRN (23:06)
[2023-07-22] MEDS ORDERED: Calcium Carbonate 500 MG ChewTAB PO PRN (23:06)
[2023-07-22] MEDS ORDERED: Acetaminophen 325 MG TAB PO PRN (23:06)
[2023-07-22] MEDS ORDERED: Senokot S 8.6-50 MG TAB PO PRN (23:06)
[2023-07-22] MEDS ORDERED: Bisacodyl 5 MG TAB PO PRN (23:06)
[2023-07-22 23:22] LABS: #Basophils 0.1 thou/uL (0.0-0.2); #Eosinphils 0.2 thou/uL (0.0-0.7); #Monocytes 0.8 thou/uL (0.11-0.59); %Basophils 0.7 % (0.0-1.0); %Eosinophils 1.1 % (0.0-10.0); %Lymphocytes 22.9 % (21.0-51.0); %Monocytes 6.3 % (0.0-10.0); %Neutrophils 68.5 % (42.0-75.0); Hematocrit 42.5 % (36.0-47.0); Mean Corpuscular HGB CONC 32.9 g/dL (32.0-36.0); Mean Corpuscular Hemoglobin 30.6 pg (27.0-31.0); Mean Platelet Volume 10.1 fL (7.4-10.4); Platelet Count 294 10x3/uL (130-400); RBC Distribution Width 13.6 % (11.5-14.5); Red Blood Cell (RBC) Count 4.57 mill/uL (4.20-5.40); White Blood Cell (WBC) Count 13.1 10x3/uL (4.8-10.8)
[2023-07-22 23:25] VITALS: BMI 37.2
[2023-07-22] MEDS ORDERED: Dicyclomine 10 MG/5 ML ORAL SOLN PO SCH (23:30)
[2023-07-22] MEDS ORDERED: Lactated Ringer's 1,000 ML IV SCH ×3 (23:30→23:45)
[2023-07-22 23:32] LABS: Hemoglobin A1c 5.7 % (4.0-6.0)
[2023-07-22] MEDS: Lidocaine 4% Topical Sol 50 ML BOT TOP SCH (23:36)
[2023-07-22] MEDS: Lidocaine 2% Viscous Solution 10 ML, Aluminum & Magnesium Hydroxide 30 ML SSW SCH (23:37)
[2023-07-22] MEDS: Ondansetron ODT 4 MG TAB PO PRN (23:40)
[2023-07-22 23:44] LABS: ALT (SGPT) 30 U/L (8-55); AST (SGOT) 22 U/L (5-34); Albumin 4.8 g/dL (3.5-5.0); Alcohol Less than 10.0 mg/dL (Less than 10); Alkaline Phosphatase 80 U/L (40-110); Anion Gap 16 mmol/L (10-20); BUN (Urea Nitrogen) 25 mg/dL (9.8-20.1); Bilirubin, Total 2.2 mg/dL (0.2-1.2); CRP (Inflammatory) Less than 0.50 mg/dL (= or < 0.5); Calc. Creatinine Clearance 56 mL/min (70-130); Calcium 9.6 mg/dL (7.8-10.44); Carbon Dioxide 22 mmol/L (22-29); Chloride 103 mmol/L (98-107); Estimated GFR 32; Globulin 3.5 g/dL (2.4-3.5); Glucose 115 mg/dL (70-105); Lipase 8 U/L (8-78); Protein, Total 8.3 g/dL (6.0-8.3); Sodium 137 mmol/L (136-145)
[2023-07-23] MEDS ORDERED: Metoclopramide HCl 10 MG TAB PO PRN (00:54)
[2023-07-23] MEDS ORDERED: Pantoprazole 40 MG VIAL IVP SCH (01:00)
[2023-07-23] MEDS: HYDROcodone/Acetaminophen 10/325 mg Tablet PO PRN ×4 (01:54→22:09)
[2023-07-23] MEDS: Lidocaine 4% Topical Sol 50 ML BOT TOP SCH (01:56)
[2023-07-23] MEDS: Lidocaine 2% Viscous Solution 10 ML, Aluminum & Magnesium Hydroxide 30 ML SSW SCH (01:57)
[2023-07-23] MEDS ORDERED: diphenhydrAMINE 50 MG/ML VIAL IVP SCH ×2 (04:30→20:00)
[2023-07-23] MEDS ORDERED: Diclofenac 1% 50 GM TOPICAL GEL TP SCH (04:30)
[2023-07-23 05:09] LABS: #Basophils 0.1 thou/uL (0.0-0.2); #Eosinphils 0.2 thou/uL (0.0-0.7); #Monocytes 0.7 thou/uL (0.11-0.59); %Basophils 0.6 % (0.0-1.0); %Eosinophils 1.8 % (0.0-10.0); %Neutrophils 66.2 % (42.0-75.0); Hematocrit 42.7 % (36.0-47.0); Hemoglobin 13.4 g/dL (12.0-16.0); Mean Corpuscular HGB CONC 31.4 g/dL (32.0-36.0); Mean Corpuscular Hemoglobin 30.9 pg (27.0-31.0); Mean Platelet Volume 10.5 fL (7.4-10.4); Platelet Count 227 10x3/uL (130-400); RBC Distribution Width 13.6 % (11.5-14.5); Red Blood Cell (RBC) Count 4.33 mill/uL (4.20-5.40); White Blood Cell (WBC) Count 10.5 10x3/uL (4.8-10.8)
[2023-07-23] MEDS ORDERED: CeleCOXIB 100 MG CAP PO SCH (05:45)
[2023-07-23 05:46] LABS: Mean Corpuscular Volume 98.6 fl (78.0-98.0)
[2023-07-23] MEDS: Dextrose 5%-Lactated Ringers 1,000 ML IV SCH ×3 (06:22→16:44)
[2023-07-23 08:29] LABS: Chloride 103 mmol/L (98-107); Potassium 3.7 mmol/L (3.5-5.1); Sodium 135 mmol/L (136-145)
[2023-07-23 08:30] LABS: Calcium 8.6 mg/dL (7.8-10.44); Glucose 123 mg/dL (70-105); Triglycerides 171 mg/dL (Less than 150)
[2023-07-23 08:32] LABS: Anion Gap 15 mmol/L (10-20); Carbon Dioxide 21 mmol/L (22-29)
[2023-07-23 08:33] LABS: Calc. Creatinine Clearance 80 mL/min (70-130); Estimated GFR 49
[2023-07-23 08:34] LABS: BUN (Urea Nitrogen) 24 mg/dL (9.8-20.1)
[2023-07-23 08:35] LABS: Cholesterol 214 mg/dl (< 200 Desired); HDL Cholesterol 29 mg/dL (>60 Neg Risk); LDL Cholesterol, Calculated 151 mg/dL
[2023-07-23 08:36] LABS: Cardiac Risk 7.4 (Less than 4.5)
[2023-07-23] MEDS: CeleCOXIB 100 MG CAP PO SCH (08:57)
[2023-07-23] MEDS: Dicyclomine 10 MG CAP PO SCH ×4 (08:59→20:37)
[2023-07-23] MEDS ORDERED: DULoxetine 30 MG CAP PO SCH (09:00)
[2023-07-23] MEDS: Diclofenac 1% 50 GM TOPICAL GEL TP SCH ×4 (09:01→20:37)
[2023-07-23] MEDS ORDERED: traMADol HCl 50 MG TAB PO PRN (15:38)
[2023-07-23] MEDS ORDERED: LIDOCAINE 4% Topical Sol 4 ML SOLN.PK.G. TP SCH (18:00)
[2023-07-23] MEDS: Acetaminophen 325 MG TAB PO SCH (20:36)
[2023-07-23] MEDS ORDERED: Acetaminophen 325 MG TAB PO SCH (22:00)
[2023-07-23] MEDS ORDERED: Ketorolac Tromethamine 30 MG/ML VIAL IVP PRN (22:06)
[2023-07-23] MEDS: Ondansetron ODT 4 MG TAB PO PRN (22:09)
[2023-07-23] MEDS ORDERED: Simethicone Chewable 80 MG TAB PO PRN (22:31)
[2023-07-23] MEDS ORDERED: Cyclobenzaprine 10 MG TAB PO PRN (22:39)
[2023-07-24] MEDS: Acetaminophen 325 MG TAB PO SCH ×6 (00:57→21:10)
[2023-07-24] MEDS: Dextrose 5%-Lactated Ringers 1,000 ML IV SCH (00:58)
[2023-07-24] MEDS: Albuterol 200 PUFF (6.7GM INHALER) INH PRN ×2 (01:04→05:40)
[2023-07-24 03:24] LABS: Bacteria/HPF None Seen HPF (None Seen); Bilirubin Negative (Negative); Blood, Urine Negative (Negative); CAUTI Indications for Culture Pelvic or flank pain; Clarity Clear (Clear); Glucose, Urine (Dipstick) Normal (Negative); Ketone, Urine Negative (Negative); Leukocyte Negative Leu/uL (Negative); Nitrite Negative (Negative); Protein, Urine (Dipstick) Negative (Neg-Trace); RBC/HPF 0-3 HPF (0-3); Squamous Epithelial 0-3 HPF (0-3); Urobilinogen Normal mg/dL (Less than 2); pH, Urine 5.5 (5.0-9.0)
[2023-07-24 03:27] LABS: Urine Culture Reflex No No
[2023-07-24 03:32] LABS: Amphetamine Not Detected (NotDetected); Barbiturates Screen Not Detected (NotDetected); Benzodiazepine Screen Not Detected (NotDetected); Cocaine Metabolite Screen Not Detected (NotDetected); Methadone Not Detected (NotDetected); Methamphetamine Not Detected (NotDetected); Opiate Screen Detected (NotDetected); Oxycodone Screen Detected (NotDetected); Phencyclidine (PCP) Not Detected (NotDetected); THC/Cannabinoid Screen Not Detected (NotDetected); Tricyclic Screen Detected (NotDetected)
[2023-07-24] MEDS: HYDROcodone/Acetaminophen 10/325 mg Tablet PO PRN ×3 (05:40→18:28)
[2023-07-24 05:58] LABS: #Basophils 0.1 thou/uL (0.0-0.2); #Eosinphils 0.3 thou/uL (0.0-0.7); #Monocytes 0.4 thou/uL (0.11-0.59); #Neutrophils 2.9 thou/uL (1.40-6.50); %Basophils 0.9 % (0.0-1.0); %Eosinophils 5.6 % (0.0-10.0); %Lymphocytes 29.9 % (21.0-51.0); %Monocytes 7.9 % (0.0-10.0); %Neutrophils 55.3 % (42.0-75.0); Hematocrit 34.8 % (36.0-47.0); Hemoglobin 11.1 g/dL (12.0-16.0); Mean Corpuscular HGB CONC 31.9 g/dL (32.0-36.0); Mean Corpuscular Hemoglobin 30.4 pg (27.0-31.0); Mean Corpuscular Volume 95.3 fl (78.0-98.0); Mean Platelet Volume 10.3 fL (7.4-10.4); Platelet Count 201 10x3/uL (130-400); RBC Distribution Width 13.7 % (11.5-14.5); Red Blood Cell (RBC) Count 3.65 mill/uL (4.20-5.40); White Blood Cell (WBC) Count 5.3 10x3/uL (4.8-10.8)
[2023-07-24 05:59] LABS: Lactic Acid 0.7 mmol/L (0.5-2.2)
[2023-07-24 06:02] LABS: Anion Gap 10 mmol/L (10-20); BUN (Urea Nitrogen) 16 mg/dL (9.8-20.1); Calc. Creatinine Clearance 111 mL/min (70-130); Calcium 8.5 mg/dL (7.8-10.44); Carbon Dioxide 29 mmol/L (22-29); Chloride 104 mmol/L (98-107); Estimated GFR 74; Glucose 114 mg/dL (70-105); Sodium 139 mmol/L (136-145)
[2023-07-24] MEDS: Ondansetron ODT 4 MG TAB PO PRN (08:39)
[2023-07-24] MEDS: Dicyclomine 10 MG CAP PO SCH ×4 (08:40→21:11)
[2023-07-24] MEDS: CeleCOXIB 100 MG CAP PO SCH ×2 (08:40→21:10)
[2023-07-24] MEDS ORDERED: Non-Formulary Item 1 EACH (Lidocaine [Lidocaine 5% Patch] 1 EACH Adh..Patch) TOP SCH (09:00)
[2023-07-24] MEDS ORDERED: Lidocaine 4% Patch TD SCH (09:00)
[2023-07-24] MEDS ORDERED: DULoxetine 30 MG CAP PO SCH ×2 (09:00→21:00)
[2023-07-24] MEDS: Diclofenac 1% 50 GM TOPICAL GEL TP SCH ×4 (09:54→21:08)
[2023-07-24] MEDS ORDERED: diphenhydrAMINE 50 MG/ML VIAL IVP SCH (12:30)
[2023-07-24 20:16] VITALS: BP 127/73; TEMP 97.7
[2023-07-24] MEDS ORDERED: Transdermal Patch Removal TOP SCH (21:00)
[2023-07-25] MEDS: Acetaminophen 325 MG TAB PO SCH ×2 (00:37→05:06)
[2023-07-25] MEDS: HYDROcodone/Acetaminophen 10/325 mg Tablet PO PRN ×2 (00:38→05:48)
[2023-07-25] MEDS: Ondansetron ODT 4 MG TAB PO PRN (05:48)
[2023-07-26] MEDS ORDERED: FLU VACC QS2023-24(6MOS UP)/PF 60 MCG/0.5 ML SYRINGE IM ONE (09:00)
== END 2023-07-25 05:56 | disposition home or self-care (01) | DRG 392 ==
LOC: INTOOBSV 22:05 → MSONC 22:05 → OBSVTOIN 07-24 11:26
PROVIDERS: ADMIT Student in an Organized Health Care Education/Training Program; ATTEND Student in an Organized Health Care Education/Training Program
DX: R10.13 Epigastric pain (principal); K62.5 Hemorrhage of anus and rectum; N17.9 Acute kidney failure, unspecified; M94.0 Chondrocostal junction syndrome [Tietze]; K76.0 Fatty (change of) liver, not elsewhere classified; G89.29 Other chronic pain; I10 Essential (primary) hypertension; E86.0 Dehydration; R63.4 Abnormal weight loss; V89.2XXD Person injured in unspecified motor-vehicle accident, traffic, subsequent encounter; Z90.710 Acquired absence of both cervix and uterus; Z91.040 Latex allergy status; Z88.8 Allergy status to other drugs, medicaments and biological substances; Z79.899 Other long term (current) drug therapy; Z98.890 Other specified postprocedural states; Z68.37 Body mass index [BMI] 37.0-37.9, adult
CPT/HCPCS: 36415; 71045; 74183; 76700; 80048; 80053; 80061; 80306; 80307; 81001; 82550; 83036; 83605; 83690; 84145; 85025; 86140; 96361; 96372; 96374; 96375; C9113; G0378; J1200; J1650; J7120; Q0162